=== PATIENT | male | born 1975 | race Caucasian/White ===

== ENCOUNTER 2017-11-05 18:21 | Emergency (ER) | payer MEDICAID ==
[~2017-11-05] VITALS: Ht 175.3 cm; Wt 68.0 kg
[2017-11-05 18:38] VITALS: BP 151/75
[2017-11-05] MEDS ORDERED: diphenhdrAMINE HCL 50 MG/1 ML VL IV ONE (19:15)
[2017-11-05] MEDS ORDERED: FAMOTIDINE (10MG/ML) 2ML VL IV ONE (19:15)
[2017-11-05] MEDS ORDERED: methylPREDNISolone SOD SUCC 125 MG/2 ML VL IV ONE (19:15)
== END 2017-11-05 20:18 | disposition left against medical advice (07) ==
LOC: EDBD 18:21 → ER 18:21
DX: L20.9 Atopic dermatitis, unspecified (principal); Z88.6 Allergy status to analgesic agent
CPT/HCPCS: 96374; 96375; 99284; J1200; J2930; J3490; 93005

== ENCOUNTER 2024-07-10 18:19 | Inpatient (IN) | payer MEDICAID ==
[~2024-07-10] VITALS: Ht 170.2 cm; Wt 84.0 kg
--- NOTE | 2024-07-10 18:50 | ED.PDOC ---
History of Present Illness HPI Comments 48-year-old male came to emergency room via EMS for chest pains. Patient states he was just discharged last night at [facility] and was treated for pneumonia for 4 days. States he still feels unwell, has been having chest discomfort, shortness of breath, dizziness and blurring of vision. Patient coming on for further evaluation management Chief Complaint: Chest pain Time Seen by MD: 18:49 Primary Care Provider: FERN Allergies: Coded Allergies: Cephalexin (Verified Allergy, Unknown, 11/17/15) Information Source: Patient Mode of Arrival: EMS Severity: Moderate Timing: Days Duration: Since onset Prehospital treatment: 12 Lead EKG Past Medical History PAST MEDICAL HISTORY: HTN Surgical History: Pacemaker Surgical History (Other): Dual defibrillator 5 months ago Social History Smoker: Non-Smoker Alcohol: Denies ETOH Use Drugs: Denies Drug Use Lives In: Home Constitutional: reports: weakness; denies: chills, diaphoresis, fatigue, fever, malaise, sweats, others EENTM: reports: blurred vision; denies: double vision, ear bleeding, ear discharge, ear drainage, ear pain, ear ringing, eye pain, eye redness, hearing loss, mouth pain, mouth swelling, nasal discharge, nose bleeding, nose congestion, nose pain, photophobia, tearing, throat pain, throat swelling, voice changes, others Respiratory: reports: SOB at rest, shortness of breath; denies: cough, hemoptysis, orthopnea, SOB with excertion, stridor, wheezing, others Cardiovascular: reports: chest pain, dizzy spells; denies: diaphoresis, Dyspnea on exertion, edema, irregular heart beat, left arm pain, lightheadedness, palpitations, PND, syncope, others Gastrointestinal: denies: abdomen distended, abdominal pain, blood streaked bowels, constipated, diarrhea, dysphagia, difficulty swallowing, hematemesis, melena, nausea, poor appetite, poor fluid intake, rectal bleeding, rectal pain, vomiting, others Genitourinary: denies: burning, dysuria, flank pain, frequency, hematuria, incontinence, penile discharge, penile sore, pain, testicle pain, testicle swelling, urgency, others Neurological: reports: dizziness; denies: fainting, headache, left sided numbness, left sided weakness, numbness, paresthesia, pre-existing deficit, right sided numbness, right sided weakness, seizure, speech problems, tingling, tremors, weakness, others Musculoskeletal: denies: back pain, gout, joint pain, joint swelling, muscle pain, muscle stiffness, neck pain, others Integumetry: denies: bruises, change in color, change in hair/nails, dryness, laceration, lesions, lumps, rash, wounds, others Allergic/Immunocompromised: denies: Difficulty Healing, Frequent Infections, Hives, Itching, others Hematologic/Lymphatic: denies: anemia, blood clots, easy bleeding, easy bruising, swollen glands, others Endocrine: denies: excessive hunger, excessive sweating, excessive thirst, excessive urination, flushing, intolerance to cold, intolerance to heat, unexplained weight gain, unexplained weight loss, others Psychiatric: denies: anxiety, bipolar disorder, depression, hopeless, panic disorder, schizophrenia, sleepless, suicidal, others Physical Exam General Appearance: No Apparent Distress, Normal HEENT: Normal ENT Inspection, Pharynx Normal, TMs Normal Neck: Full Range of Motion, Non-Tender, Normal, Normal Inspection Respiratory: Chest Non-Tender, Lungs Clear, No Accessory Muscle Use, No Respiratory Distress, Normal Breath Sounds Cardiovascular: No Edema, No JVD, No Murmur, No Gallop, Normal Peripheral Pulses, Regular Rate/Rhythm Breast Exam: Deferred Gastrointestinal: No Organomegaly, Non Tender, No Pulsatile Mass, Normal Bowel Sounds, Soft Genitalia: Deferred Pelvic: Deferred Rectal: Deferred Extremities: No calf tenderness, Normal capillary refill, Normal inspection, Normal range of motion, Non-tender, No pedal edema Musculoskeletal : Apperance: Normal Neurologic: Alert, 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 Was a procedure done?: No EKG EKG : Pulse Rate (adult): 96 Cardiac Rhythm: NSR Differential Dx Considerations may include: Anemia, electrolyte imbalance, pneumonia, coronary artery disease, pacemaker malfunction X-Ray, Labs, Meds, VS Vital Signs Date Time Temp Pulse Resp B/P (MAP) Pulse Ox O2 Delivery O2 Flow Rate FiO2 07/10/24 18:50 96 07/10/24 18:48 98.4 98 18 123/67 (85) 95 07/10/24 18:22 96 Lab Test 07/10/24 19:36 07/10/24 18:46 Range/Units Troponin I High Sensitivity Pending 7 </=54 ng/L White Blood Count 7.5 4.4-10.8 10^3/uL Red Blood Count 5.51 4.5-5.90 10^6/uL Hemoglobin 15.9 13.5-17.5 g/dL Hematocrit 47.9 41.0-53.0 % Mean Corpuscular Volume 86.8 80.0-100.0 fL Mean Corpuscular Hemoglobin 28.8 28.0-32.0 pg Mean Corpuscular Hemoglobin Concent 33.2 32.0-36.0 g/dL Red Cell Distribution Width 15.5 H 11.8-14.3 % Platelet Count 329 140-450 10^3/uL Mean Platelet Volume 7.7 6.9-10.8 fL Neutrophils (%) (Auto) 75.4 37.0-80.0 % Lymphocytes (%) (Auto) 16.8 10.0-50.0 % Monocytes (%) (Auto) 6.7 0.0-12.0 % Eosinophils (%) (Auto) 0.7 0.0-7.0 % Basophils (%) (Auto) 0.4 0.0-2.0 % Neutrophils # (Auto) 5.6 1.6-8.6 10 ^3/uL Lymphocytes # (Auto) 1.3 0.4-5.4 10 ^3/uL Monocytes # (Auto) 0.5 0-1.3 10 ^3/uL Eosinophils # (Auto) 0.1 0-0.8 10 ^3/uL Basophils # (Auto) 0 0-0.2 10 ^3/uL Nucleated Red Blood Cells 0.1 % Sodium Level 138 136-145 mmol/L Potassium Level 4.9 3.5-5.1 mmol/L Chloride Level 103 98-107 mmol/L Carbon Dioxide Level 30 20-31 mmol/L Anion Gap 5 5-15 Blood Urea Nitrogen 35 H 9-23 mg/dL Creatinine 1.46 H 0.700-1.30 mg/dL Glomerular Filtration Rate Calc 59 >90 mL/min BUN/Creatinine Ratio 24.0 H 10.0-20.0 Serum Glucose 131 H 74-106 mg/dL Calcium Level 10.0 8.7-10.4 mg/dL B-Type Natriuretic Peptide 288.27 0-100 pg/mL EXAM: XY CHEST PORTABLE TECHNIQUE: Single frontal chest radiograph CLINICAL HISTORY: chest pain COMPARISON: None Findings/Impression: Frontal chest radiograph demonstrates no acute osseous or superficial soft tissue abnormalities. Left chest wall ICD. The trachea is midline. The cardiac silhouette and mediastinum are within normal limits. No pneumothorax, pleural effusions, or consolidations. Time of 1ST Reevaluation: 18:46 Reevaluation 1ST: Unchanged Patient Education/Counseling: Diagnosis, Treatment Family Education/Counseling: No Family Present Departure 1 Departure Time of Disposition: 19:50 (Patient presented with chest pain that was concerning for possible STEMI, ACS, PE, Pneumonia, Muscle Strain, COPD, Dissection. Data: 1. I ordered and reviewed the result of at least 3 labs including a CBC, BMP, and Troponin. 2. I independently interpreted the following tests: EKG which shows sinus arrhythmia and Chest X-ray which shows benign chest.Risk:This patient has a high risk of morbidity due to further diagnostic testing or treatment and may suffer from an acute cardiac or respiratory disorder. Workup reveals concern for ACS and patient should be admitted for further workup and possible expert consultation. ) Impression: Primary Impression: Acute chest pain Additional Impressions: Shortness of breath Dizziness Disposition: ADMITTED INPATIENT Admit to: Med Surg Condition: Serious Critical Care Note Critical Care Time?: Yes Critical care comment: Acute chest pain Authorized and Performed by: Everardo Rich MD Total critical care time: Approximately 33 minutes Due to a high probability of clinically significant, life threatening deterioration, the patient required my highest level of preparedness to intervene emergently and I personally spent this critical care time directly and personally managing the patient. This critical care time included obtaining a history; examining the patient; pulse oximetry; ordering and review of studies; arranging urgent treatment with development of a management plan; evaluation of patient's response to treatment; frequent reassessment; and, discussions with other providers. This critical care time was performed to assess and manage the high probability of imminent, life-threatening deterioration that could result in multi-organ failure. It was exclusive of separately billable procedures and treating other patients and teaching time. Please see my other sections and the rest of the note for further information on patient assessment and treatment. Stability Stability form required: No Heart Score Heart Score: Heart Score Response (Comments) Value History Moderate Suspicious 1 EKG Repolarization Disturb 1 Age 45-64 1 Risk Factors 1 or 2 risk factors 1 Troponin Normal limit 0 Total 4 I personally scribed for EVERARDO RICH MD ([facility]) on 07/10/24 at 18:50. Electronically submitted by Steven Bledsoe ([employer]). I personally scribed for [facility] on 07/10/24 at 19:49. Electronically submitted by Steven Bledsoe ([facility] EVERARDO RICH MD Jul 10, 2024 18:50
[2024-07-10 19:03] LABS: Basophils # (auto) 0 10 ^3/uL (0-0.2); Basophils % (auto) 0.4 % (0.0-2.0); Eosinophils # (auto) 0.1 10 ^3/uL (0-0.8); Eosinophils % (auto) 0.7 % (0.0-7.0); Hematocrit 47.9 % (41.0-53.0); Hemoglobin 15.9 g/dL (13.5-17.5); Lymphocytes # (auto) 1.3 10 ^3/uL (0.4-5.4); Lymphocytes % (auto) 16.8 % (10.0-50.0); Mean Corpuscular Hemoglobin 28.8 pg (28.0-32.0); Mean Corpuscular Hgb Conc. 33.2 g/dL (32.0-36.0); Mean Corpuscular Volume 86.8 fL (80.0-100.0); Monocytes # (auto) 0.5 10 ^3/uL (0-1.3); Monocytes % (auto) 6.7 % (0.0-12.0); Neutrophils # (auto) 5.6 10 ^3/uL (1.6-8.6); Neutrophils % (auto) 75.4 % (37.0-80.0); Nucleated Red Blood Cells % 0.1 %; Platelet Count (auto) 329 10^3/uL (140-450); Red Blood Cells 5.51 10^6/uL (4.5-5.90); Red Cell Distribution Width 15.5 % (11.8-14.3); White Blood Cell 7.5 10^3/uL (4.4-10.8)
[2024-07-10 19:14] LABS: Chloride 103 mmol/L (98-107); Potassium 4.9 mmol/L (3.5-5.1); Sodium 138 mmol/L (136-145)
[2024-07-10 19:15] LABS: Anion Gap 5 (5-15); Carbon Dioxide 30 mmol/L (20-31)
[2024-07-10 19:22] LABS: Blood Urea Nitrogen 35 mg/dL (9-23); Glucose 131 mg/dL (74-106)
--- NOTE | 2024-07-10 19:30 | DVH ---
EXAM: XY CHEST PORTABLE TECHNIQUE: Single frontal chest radiograph CLINICAL HISTORY: chest pain COMPARISON: None Findings/Impression: Frontal chest radiograph demonstrates no acute osseous or superficial soft tissue abnormalities. Left chest wall ICD. The trachea is midline. The cardiac silhouette and mediastinum are within normal limits. No pneumothorax, pleural effusions, or consolidations.
[2024-07-10] MEDS ORDERED: HYDROcodone-ACET 5/325MG TAB PO PRN (20:45)
[2024-07-10] MEDS ORDERED: ONDANSETRON HCL 4 MG/2 ML VIAL IV PRN (20:45)
[2024-07-10] MEDS ORDERED: ALBUTEROL SULF 2.5 MG/0.5ML(0.5%) NEB SOLN NEB PRN (20:45)
[2024-07-10] MEDS ORDERED: DEXTROSE (50%) 50ML SYRG IV PRN (20:45)
[2024-07-10] MEDS ORDERED: ACETAMINOPHEN 325 MG TAB PO PRN (20:45)
[2024-07-10] MEDS ORDERED: DOCUSATE SOD 100 MG CAP PO PRN (20:45)
[2024-07-10 21:32] VITALS: O2SAT 95
--- NOTE | 2024-07-10 21:41 | DVHHP2 ---
History of Present Illness Reason for Visit: Acute chest pain History of Present Illness The patient is a 48-year-old male with past medical history of diabetes mellitus and hypertension who presented to [facility] ED with complaint of acute chest. Patient reports he was just discharged last night at [facility] and was treated for pneumonia for 4 days, he feels chest discomfort, associated shortness of breath, dizziness, and blurring of vision, getting worse that he decided to come to our facility ED. patient was seen and evaluated in the ED, laboratory data shows WBC 7.5, platelets 329, sodium 138, potassium 4.9, BUN 35, creatinine 1.46, GFR 59, glucose 131, BNP 288.27, troponin 7, blood pressure 123/67, heart rate 96, temperature 98.4 F, O2 saturation 95% on oxygen. Chest x-ray revealing left chest wall ICD, no pneumothorax, pleural effusions, or consolidations. On my assessment, patient denied chest pain at this moment, no headache, no dizziness, no diaphoresis, no nausea, no vomiting, no fever, no chills. Patient was admitted for further evaluation and medical management. Past Medical History HTN, DM Past Surgical History Pacemaker, Dual defibrillator 5 months prior Family History Reviewed, noncontributory to the management of this case. Past Social History The patient lives at home, denies smoking, alcohol or illicit drugs abuse. Review of Systems Constitutional: Yes: Weakness; No: Fever, Chills, Sweats, Malaise, Other Eyes: Other (Blurry vision); No: Pain, Vision change, Conjunctivae inflamm ation, Eyelid inflammation, Redness ENT: No: Ear pain, Ear discharge, Nose pain, Nose discharge, Nose congestion, Mouth pain, Mouth swelling, Throat pain, Throat swelling, Other Respiratory: Shortness of breath, Other (SOB at rest); No: Cough, Dry, SOB with excertion, Wheezing, Hemoptysis, Pleuritic Pain, Sputum, Wheezing Cardiovascular: Chest Pain, Other (Dizzy spells); No: Palpitations, Orthopnea, Paroxysmal Noc. Dyspnea, Edema, Lt Headedness Gastrointestinal: No: Nausea, Vomiting, Abdominal Pain, Diarrhea, Constipation, Melena, Hematochezia, Other Genitourinary: No Dysuria, No Frequency, No Incontinence, No Hematuria, No Retention, No Other Musculoskeletal: No: other, neck pain, shoulder pain, arm pain, back pain, hand pain, leg pain, foot pain Skin: No: Rash, Lesions, Jaundice, Bruising, Other Neurological: Other (Dizziness); No: Weakness, Numbness, Incoordination, Change in speech, Confusion, Seizures Allergies: Coded Allergies: Cephalexin (Verified Allergy, Unknown, 11/17/15) Medications Current Medications Medications Dose Ordered Sig/Jovany Route Start Time Stop Time Status Last Admin Dose Admin Aspirin 81 mg DAILY PO 07/11/24 10:00 Carvedilol 3.125 mg Q12HR PO 07/10/24 22:00 Furosemide 40 mg DAILY IV 07/11/24 10:00 Diagnostic Test (Pha) 1 strip ACHS 07/10/24 22:00 Insulin Human Regular ACHS SC 07/10/24 22:00 Dextrose 50 ml UD PRN IV 07/10/24 20:45 Sodium Chloride 10 ml Q8HR IV 07/10/24 22:00 Acetaminophen/ Hydrocodone Bitart 1 tab Q4HP PRN PO 07/10/24 20:45 Ondansetron HCl 4 mg Q4HP PRN IV 07/10/24 20:45 Docusate Sodium 100 mg BIDPRN PRN PO 07/10/24 20:45 Acetaminophen 650 mg Q6HP PRN PO 07/10/24 20:45 Albuterol 2.5 mg Q4HPRN PRN NEB 07/10/24 20:45 Exam Vital Signs Vital Signs Date Time Temp Pulse Resp B/P (MAP) Pulse Ox O2 Delivery O2 Flow Rate FiO2 07/10/24 21:32 95 Room Air 0.0 07/10/24 21:32 21 07/10/24 18:50 96 07/10/24 18:48 98.4 18 123/67 (85) General Appearance: Alert, Oriented X3, Cooperative, No acute distress HEENT: Atraumatic, PERRLA, EOMI, Mucous membr. moist/pink Respiratory: Clear to auscultation, Normal air movement Cardiovascular: Regular rate, Normal S1, Normal S2, No murmurs Abdominal: Normal bowel sounds, Soft, No tenderness, No hepatospenomegaly, No masses Extremities: No clubbing, No cyanosis, No edema, Normal pulses, No tenderness/swelling Skin: No rashes, No breakdown, No significant lesion Neuro: Normal speech, Normal tone, Sensation intact, Cranial nerves 3-12 NL, Reflexes 2+, Other (Generalized weakness) Psych/Mental Status: Mental status NL, Mood NL Labs/Xrays Labs Test 07/10/24 21:05 07/10/24 18:46 Range/Units Troponin I High Sensitivity 8 </=54 ng/L White Blood Count 7.5 4.4-10.8 10^3/uL Red Blood Count 5.51 4.5-5.90 10^6/uL Hemoglobin 15.9 13.5-17.5 g/dL Hematocrit 47.9 41.0-53.0 % Mean Corpuscular Volume 86.8 80.0-100.0 fL Mean Corpuscular Hemoglobin 28.8 28.0-32.0 pg Mean Corpuscular Hemoglobin Concent 33.2 32.0-36.0 g/dL Red Cell Distribution Width 15.5 H 11.8-14.3 % Platelet Count 329 140-450 10^3/uL Mean Platelet Volume 7.7 6.9-10.8 fL Neutrophils (%) (Auto) 75.4 37.0-80.0 % Lymphocytes (%) (Auto) 16.8 10.0-50.0 % Monocytes (%) (Auto) 6.7 0.0-12.0 % Eosinophils (%) (Auto) 0.7 0.0-7.0 % Basophils (%) (Auto) 0.4 0.0-2.0 % Neutrophils # (Auto) 5.6 1.6-8.6 10 ^3/uL Lymphocytes # (Auto) 1.3 0.4-5.4 10 ^3/uL Monocytes # (Auto) 0.5 0-1.3 10 ^3/uL Eosinophils # (Auto) 0.1 0-0.8 10 ^3/uL Basophils # (Auto) 0 0-0.2 10 ^3/uL Nucleated Red Blood Cells 0.1 % Sodium Level 138 136-145 mmol/L Potassium Level 4.9 3.5-5.1 mmol/L Chloride Level 103 98-107 mmol/L Carbon Dioxide Level 30 20-31 mmol/L Anion Gap 5 5-15 Blood Urea Nitrogen 35 H 9-23 mg/dL Creatinine 1.46 H 0.700-1.30 mg/dL Glomerular Filtration Rate Calc 59 >90 mL/min BUN/Creatinine Ratio 24.0 H 10.0-20.0 Serum Glucose 131 H 74-106 mg/dL Calcium Level 10.0 8.7-10.4 mg/dL B-Type Natriuretic Peptide 288.27 0-100 pg/mL PATIENT: PALOMA CUNNINGHAM ACCT: [id number] UNIT: [id number] : 1975 LOC: ER ROOM / BED: / AGE / SEX: 48 / M ADM STATUS: REG ER SERVICE 183 ORDERING PHYSICIAN: BAILEE SEGOVIA MD PROCEDURE(s): CXRP - CHEST PORTABLE REASON: chest pain ORDER NUMBER(s): [id number], ACCESSION NUMBER(s): [id number] EXAM: XY CHEST PORTABLE TECHNIQUE: Single frontal chest radiograph CLINICAL HISTORY: chest pain COMPARISON: None Findings/Impression: Frontal chest radiograph demonstrates no acute osseous or superficial soft tissue abnormalities. Left chest wall ICD. The trachea is midline. The cardiac silhouette and mediastinum are within normal limits. No pneumothorax, pleural effusions, or consolidations. Assessment/Plan Assessment/Plan Acute chest pain Dizziness Shortness of breath Acute renal injury Acute exacerbation of congestive heart failure Diabetes mellitus with hyperglycemia Plan 1. Admit to telemetry unit 2. Breathing treatment 3. Pain control management 4. Management of fluids and electrolytes 5. Consultation for Cardiology 6. Diagnostic tests chest x-ray 7. DVT prophylaxis on aspirin 8. Repeat labs CBC, CMP in a.m. 9. Continue with current medical management 10. Treatment plan discussed with patient and RN. Patient verbalized understanding. Plan discussed with: Patient, Other (RN) My Orders Orders - RAJAT TOUSSAINT DNP Procedure Category Date Status Time Consistent DIET 07/11/24 Transmitted Carb(Ccho)Diabetes Breakfast Aspirin Tablet PHA 07/11/24 In Process 10:00 Carvedilol Tablet PHA 07/10/24 In Process (Coreg Tablet) 22:00 Furosemide Injection PHA 07/11/24 In Process (Lasix Injection) 10:00 Glucose Blood PHA 07/10/24 In Process (Accu-Chek Comfort 22:00 Insulin R (Human) PHA 07/10/24 In Process (Insulin R) 22:00 Dextrose 50% Syringe PHA 07/10/24 In Process 20:45 Allergies MALA 07/10/24 In Process 20:41 Code Status CODE 07/10/24 Transmitted 20:41 Sodium Chloride Lock PHA 07/10/24 In Process (Saline Lock Ns) 22:00 Oxygen Per Hour RT 07/10/24 Transmitted 20:41 Hydrocodone-Acet PHA 07/10/24 In Process 5/325mg Tab ([place] 20:45 Ondansetron Hcl PHA 07/10/24 In Process (Zofran) 20:45 Docusate Sodium PHA 07/10/24 In Process Capsule (Colace 20:45 Complete Blood Count LAB 07/11/24 Verified 04:00 Comprehensive LAB 07/11/24 Verified Metabolic Panel 04:00 Echo 2d Mode Cardiac US 07/10/24 Logged DOP 20:41 Condition: Serious MALA 07/10/24 In Process 20:41 Acetaminophen Tablet PHA 07/10/24 In Process (Tylenol Tablet) 20:45 Bedrest With Bathroom MALA 07/10/24 In Process Privileg 20:41 Sequential MALA 07/10/24 In Process Compression Device Albuterol Medneb PHA 07/10/24 In Process (Ventolin Medneb) 20:45 Problem List: (1) Acute chest pain (2) Dizziness (3) Shortness of breath (4) Acute renal injury (5) Acute exacerbation of congestive heart failure (6) Diabetes mellitus with hyperglycemia Date of Service: Jul 10, 2024 Billing Provider: RAJAT TOUSSAINT DNP Common Visit Codes: 78621-[id number] INP/OBS CARE (HIGH) RAJAT TOUSSAINT DNP Jul 10, 2024 21:41
[2024-07-10] MEDS ORDERED: NITROGLYCERIN 0.4 MG SL TAB SL PRN (21:45)
[2024-07-10] MEDS ORDERED: MORPHINE SULFATE INJ 2 MG/ml SYRG IV PRN (21:45)
[2024-07-10 21:58] VITALS: BP 123/67; PULSE 96; RESP 18; TEMP 98.4; O2SAT 95
[2024-07-11] VITALS (7 sets, daily range): BP systolic 102–109; BP diastolic 65–75; PULSE 86–97; RESP 16–19; TEMP 97.5–98.1; O2SAT 94–100
[2024-07-11] MEDS: CARVEDILOL 3.125 MG TAB PO SCH (01:04)
[2024-07-11] MEDS: InsuLIN REG 1unit/0.01ml Soln (100units/ml) SC SCH (01:04)
[2024-07-11] MEDS: ACCU-CHEK COMFORT CURVE STRIP VI SCH (01:06)
[2024-07-11] MEDS ORDERED: guaiFENesin 200 MG/10 ML UD PO PRN (01:30)
[2024-07-11] MEDS: guaiFENesin 200 MG/10 ML UD PO PRN (01:56)
[2024-07-11] MEDS ORDERED: ASPI325T6 PO (03:34)
[2024-07-11] MEDS ORDERED: BUPR-346 PO (03:34)
[2024-07-11] MEDS ORDERED: METO25TA93 PO (03:37)
[2024-07-11] MEDS ORDERED: LISI10TA34 PO (03:37)
[2024-07-11] MEDS ORDERED: FURO40TA4 PO (03:37)
[2024-07-11] MEDS ORDERED: FENO145T27 PO (03:37)
[2024-07-11] MEDS ORDERED: CANA100T PO (03:37)
[2024-07-11] MEDS ORDERED: GLIP10TA9 PO (03:39)
[2024-07-11] MEDS: SODIUM CHLOR 0.9% PF (SALINE LOCK) 10ML VIAL/SYR IV SCH (04:23)
[2024-07-11 09:35] LABS: Basophils # (auto) 0 10 ^3/uL (0-0.2); Basophils % (auto) 0.9 % (0.0-2.0); Eosinophils # (auto) 0.1 10 ^3/uL (0-0.8); Eosinophils % (auto) 0.9 % (0.0-7.0); Hemoglobin 14.6 g/dL (13.5-17.5); Lymphocytes % (auto) 19.2 % (10.0-50.0); Mean Corpuscular Hemoglobin 28.7 pg (28.0-32.0); Mean Corpuscular Hgb Conc. 33.1 g/dL (32.0-36.0); Mean Corpuscular Volume 86.7 fL (80.0-100.0); Monocytes # (auto) 0.4 10 ^3/uL (0-1.3); Monocytes % (auto) 8.3 % (0.0-12.0); Neutrophils # (auto) 3.8 10 ^3/uL (1.6-8.6); Neutrophils % (auto) 70.7 % (37.0-80.0); Nucleated Red Blood Cells % 0.1 %; Platelet Count (auto) 269 10^3/uL (140-450); Red Blood Cells 5.07 10^6/uL (4.5-5.90); Red Cell Distribution Width 15.5 % (11.8-14.3); White Blood Cell 5.3 10^3/uL (4.4-10.8)
[2024-07-11 09:36] LABS: Alanine Aminotransferase 24 U/L (7-40); Albumin 4.4 g/dL (3.2-4.8); Anion Gap 6 (5-15); Aspartate Aminotransferase 19 U/L (13-40); BUN/Creatinine Ratio 21.7 (10.0-20.0); Calcium 9.6 mg/dL (8.7-10.4); Carbon Dioxide 24 mmol/L (20-31); Chloride 107 mmol/L (98-107); Potassium 4.8 mmol/L (3.5-5.1); Sodium 137 mmol/L (136-145)
[2024-07-11 09:37] LABS: Bilirubin, Total 0.5 mg/dL (0.2-1.0); Total Protein 6.7 g/dL (5.7-8.2)
[2024-07-11 09:42] LABS: Alkaline Phosphatase 170 U/L (46-116); Blood Urea Nitrogen 28 mg/dL (9-23); Glucose 162 mg/dL (74-106)
[2024-07-11] MEDS: ASPirin 81 mg TAB PO SCH (10:27)
[2024-07-11] MEDS: FUROSEMIDE 40 MG/4 ML VIAL IV SCH (10:32)
[2024-07-11] MEDS ORDERED: AZIT500T66 PO (15:24)
[2024-07-11] MEDS ORDERED: ASPI1TAB20 PO (15:24)
--- NOTE | 2024-07-11 15:25 | DVHDSRES ---
Discharge Summary Date of Admission Resident Creating Document: JESICA DAVENPORT RESIDENT Jul 10, 2024 at 21:40 Date of Discharge: Jul 11, 2024 Admitting Diagnosis Acute chest pain rule out ACS Wounds: No wound was present Labs/Diagnostic Data: Laboratory Results Test 07/11/24 14:30 07/11/24 12:09 07/11/24 09:00 07/10/24 21:05 POC Glucose 128 mg/dl (70-106) White Blood Count 5.3 10^3/uL (4.4-10.8) Red Blood Count 5.07 10^6/uL (4.5-5.90) Hemoglobin 14.6 g/dL (13.5-17.5) Hematocrit 44.0 % (41.0-53.0) Mean Corpuscular Volume 86.7 fL (80.0-100.0) Mean Corpuscular Hemoglobin 28.7 pg (28.0-32.0) Mean Corpuscular Hemoglobin Concent 33.1 g/dL (32.0-36.0) Red Cell Distribution Width 15.5 % (11.8-14.3) Platelet Count 269 10^3/uL (140-450) Mean Platelet Volume 8.0 fL (6.9-10.8) Neutrophils (%) (Auto) 70.7 % (37.0-80.0) Lymphocytes (%) (Auto) 19.2 % (10.0-50.0) Monocytes (%) (Auto) 8.3 % (0.0-12.0) Eosinophils (%) (Auto) 0.9 % (0.0-7.0) Basophils (%) (Auto) 0.9 % (0.0-2.0) Neutrophils # (Auto) 3.8 10 ^3/uL (1.6-8.6) Lymphocytes # (Auto) 1.0 10 ^3/uL (0.4-5.4) Monocytes # (Auto) 0.4 10 ^3/uL (0-1.3) Eosinophils # (Auto) 0.1 10 ^3/uL (0-0.8) Basophils # (Auto) 0 10 ^3/uL (0-0.2) Nucleated Red Blood Cells 0.1 % Sodium Level 137 mmol/L (136-145) Potassium Level 4.8 mmol/L (3.5-5.1) Chloride Level 107 mmol/L (98-107) Carbon Dioxide Level 24 mmol/L (20-31) Anion Gap 6 (5-15) Blood Urea Nitrogen 28 mg/dL (9-23) Creatinine 1.29 mg/dL (0.700-1.30) Glomerular Filtration Rate Calc 68 mL/min (>90) BUN/Creatinine Ratio 21.7 (10.0-20.0) Serum Glucose 162 mg/dL (74-106) Hemoglobin A1c 7.2 % A1C (<5.7) Calcium Level 9.6 mg/dL (8.7-10.4) Total Bilirubin 0.5 mg/dL (0.2-1.0) Aspartate Amino Transferase (AST) 19 U/L (13-40) Alanine Aminotransferase (ALT) 24 U/L (7-40) Alkaline Phosphatase 170 U/L (46-116) Total Protein 6.7 g/dL (5.7-8.2) Albumin 4.4 g/dL (3.2-4.8) Thyroid Stimulating Hormone (TSH) 3.40 uIU/mL (0.55-4.78) Troponin I High Sensitivity 8 ng/L (</=54) Test 07/10/24 18:46 B-Type Natriuretic Peptide 288.27 pg/mL (0-100) Other Laboratory Tests 07/11/24 09:00 Brief Hx & Hospital Course: This is a 56 yr old male with past medical history of hypertension, type 2 diabetes mellitus, CHF, status post AICD presented to the ED with a chief complaint of chest pain with shortness of Breath for few hours prior to this admission. The patient reported he was discharged from [facility] 1 days ago and was treated there for pneumonia for 4 days. He mentioned chest pain started 4 or 5 hours ago which was midsternal, 6/10, radiates to the right side of the chest and also in the back and associated with shortness of breath, dizziness and blurring of vision. He has history of methamphetamine abuse ,polysubstance abuse for more than 10 years and smokes more than 1 pack per day for last 10 years. Hospital course: the patient 12 lead EKG revealed sinus rhythm with possible LVH and troponins were unremarkable. patient was in room air and there was no clinical sign volume overload of acute exacerbation of chronic heart failure. normal no acute cardiopulmonary disease and BNP is mildly elevated. injury secondary to hemodynamically mediated was resolved controlled with mild sliding scale of insulin. discharge plan was discussed with the patient and all questions were answered. has been discharged to home Discharge diagnosis: - Chest pain ruled out ACS - Community-acquired Gram-positive/Gram-negative/atypical pneumonia likely - PUJA secondary to hemodynamically mediated /VMN resolved -Type 2 Diabetes melitus - Possible chronic systolic heart failure without acute exaccerbation. Discharge disposition: Home Medications: azithromycin 500 mg p.o. daily for 5 days and aspirin 81 mg p.o. daily for 1 month Follow up: DC clinic in 1 week PCP in 1 to 2 week Cardiology in 1 to 2 week Nicotine dependance, methamphetamine and polysubstance abuse - Counseled patient regarding quit smoking, drug abuse and rehabilitation Consults/Reason for consult No consultation was done Operations or Procedures EXAM: XY CHEST PORTABLE TECHNIQUE: Single frontal chest radiograph CLINICAL HISTORY: chest pain COMPARISON: None Findings/Impression: Frontal chest radiograph demonstrates no acute osseous or superficial soft tissue abnormalities. Left chest wall ICD. The trachea is midline. The cardiac silhouette and mediastinum are within normal limits. No pneumothorax, pleural effusions, or consolidations. Condition at Discharge: Stable Final Diagnosis/Problems List - Chest pain ruled out ACS - Community-acquired Gram-positive/Gram-negative/atypical pneumonia likely - PUJA secondary to hemodynamically mediated /VMN resolved - Type 2 Diabetes melitus - Possible chronic systolic heart failure without acute exaccerbation. Discharge Disposition: Home Discharge Instruct/Medications Diet: Cardiac 2g Na,low cholest Activity: No Restrictions, As Tolerated Follow Up/Referral: Follow up with PCP in 1 week Follow up with Cardiology in 1-2 weeks Medications: Azithromycin 500 mg 1 tab po daily for 5days Discharge Statement: "Patient was advised to return to the ER or call 911 if any headaches, dizziness, shortness of breath, chest pain, abdominal pain, bleeding, fevers, or worsening of medical condition. Patient was counseled about treatment plan, medications, possible side effects, patientverbalized understanding. All questions were answered to the best of my ability. This discharge took greater then 30 minutes in planning, reviewing documentation, counseling the patient, and discussing with other team members." ASSESSMENT ASSESSMENT Assessment - Chest pain ruled out ACS - Community-acquired Gram-positive/Gram-negative/atypical pneumonia likely - PUJA secondary to hemodynamically mediated /VMN resolved - Type 2 Diabetes melitus - Possible chronic systolic heart failure without acute exaccerbation. Date of Service: Jul 11, 2024 Billing Provider: FERN BARRY MD Common Visit Codes: 31779-YGV/OBS DISCH DAY >30min Secondary Visit Codes: 35064-[id number] COUNSELING IND, 95320-DXKRC CHNG SMOKING >10MIN JESICA DAVENPORT RESIDENT Jul 11, 2024 15:25 FERN BARRY MD Jul 14, 2024 16:45
[2024-07-11 15:59] LABS: Amphetamine Screen, Urine Pos (NEGATIVE); Barbiturate Scree,Urine Neg (NEGATIVE); Benzodiazephine Screen, Urine Neg (NEGATIVE); Cannabinoid Screen, Urine Neg (NEGATIVE); Cocaine Screen, Urine Neg (NEGATIVE); Opiate Scree,Urine Neg (NEGATIVE); Phencyclidine Screen, Urine Neg (NEGATIVE)
[2024-07-11] MEDS ORDERED: FENO160T PO (16:07)
[2024-07-11] MEDS ORDERED: GABA-1308 PO (16:07)
[2024-07-11] MEDS ORDERED: BUPR150T18 PO (16:07)
--- NOTE | 2024-07-11 16:11 | DVHSR ---
APPROVED REPORT EXAM: Two-dimensional and M-mode echocardiogram with Doppler and color Doppler. Blood Pressure: 118/65 mmHg INDICATION Elevated BNP RISK FACTORS Height: 5'7", Weight: 185 DIMENSIONS LVDd5.9 (3.8-5.7cm)LA (2D)4.4 (1.9-4.0cm)Aortic Root2.7 (2.0-3.7cm) LVDs5.4 (2.5-4.0cm)LA (MM) (1.9-4.0cm)Aortic Cusp Exc1.7 (1.5-2.0cm) EF (%) 16.0 (55-70%)Rt. Atrium3.6 (1.9-4.0cm)Asc. Aorta2.8 cm IVSd0.7 (0.7-1.1cm)RV (D)3.6 (1.8-2.4cm) PWd1.2 (0.7-1.1cm) Mitral Valve MitralMitral Stenosis E wave0.78m/sMV Mean GR.mmHg A wave0.58m/sMV Peak GR.mmHg E/A ratio1.32D MVAcm2 DECEL [id number] 1/2 Timems Aortic Valve Aortic ValveAortic Stenosis V10.64m/Dilcia Mean GR.3mmHg V21.01m/Dilcia Peak GR.4mmHg LVOT Diameter2.4 (1.8-2.4cm)Doppler AVA2.87cm2 Pulmonic Valve V20.82m/s Tricuspid Valve TR Velocity2.62m/s [id number] Conclusion lvef 10% by visaul estimate severe dilated LVH RV dysfunction pacing lead in RV mild mitral regurg left atrium enlarged
--- NOTE | 2024-07-14 13:42 | ECG ---
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
== END 2024-07-11 21:28 | disposition home or self-care (01) | DRG 137 ==
LOC: EDUNIT# 18:19 → ER 18:19 → EDBD 18:19 → TELE 21:40 → UNDODEPER 07-11 03:38 → TELE-WESTW 07-11 05:40
PROVIDERS: ADMIT Student in an Organized Health Care Education/Training Program; ATTEND Student in an Organized Health Care Education/Training Program
DX: J15.69 Pneumonia due to other Gram-negative bacteria (principal); N17.0 Acute kidney failure with tubular necrosis; I50.22 Chronic systolic (congestive) heart failure; I11.0 Hypertensive heart disease with heart failure; J15.9 Unspecified bacterial pneumonia; E11.65 Type 2 diabetes mellitus with hyperglycemia; Z88.1 Allergy status to other antibiotic agents; Z79.4 Long term (current) use of insulin; Z79.899 Other long term (current) drug therapy; R07.81 Pleurodynia
CPT/HCPCS: 36415; 71045; 80048; 80053; 80307; 82962; 83036; 83880; 84443; 84484; 85025; 87081; 93005; 93306; 99291; G0378; J1815